=== PATIENT | female | born 1970 | race Caucasian/White ===

== ENCOUNTER 2024-03-01 10:13 | Emergency (ER) | payer BC, SELFPAY ==
[2024-03-01 10:21] VITALS: BP 138/101; PULSE 81; RESP 18; TEMP 36.3; O2SAT 96; BMI 31.7
--- NOTE | 2024-03-01 10:51 | CRLHL7_ITS ---
For Patients: As a result of the Century Cures Act, medical imaging exams and procedure reports are released immediately into your electronic medical record. You may view this report before your referring provider. If you have questions, please contact your health care provider. Indication: Fall, injury. Technique: Pelvis and left hip 3 views. Comparison: None. Findings: Bones: Alignment is normal. No fractures or bone lesions. Joint spaces: Mild bilateral hip joint arthrosis. Soft tissues: Unremarkable. Impression: No findings to explain pain. Dictated by Poli Bryant MD @ 03/01/2024 11:13:39 AM (Electronically Signed)
--- NOTE | 2024-03-01 11:28 | ED.FALL ---
HPI - Fall General Chief Complaint: Fall/Minor Trauma Stated Complaint: Fall at home, LT hip leg pain, nausea Time Seen by Provider: 03/01/24 10:48 History of Present Illness HPI Narrative: This 53-year-old female comes in with an injury to her left hip region. She states that she got tripped up by her dog and fell onto the her left hip. She was able to get up and ambulate some afterwards. She does not report any other injury. Related Data Home Medications ?Medication ?Instructions ?Recorded ?Confirmed olanzapine-fluoxetine 12 mg-25 mg 1 cap PO QPM 03/01/24 03/01/24 capsule ropinirole 1 mg tablet 1 mg PO QPM 03/01/24 03/01/24 trazodone 100 mg tablet 200 mg PO QPM PRN 03/01/24 03/01/24 Previous Rx's ?Medication ?Instructions ?Recorded hydrocodone 5 mg-acetaminophen 325 1 tab PO Q4-6H PRN pain #10 tabs 03/01/24 mg tablet ketorolac 10 mg tablet 10 mg PO Q8H 5 days #15 tabs 03/01/24 Allergies Allergy/AdvReac Type Severity Reaction Status Date / Time No Known Drug Allergies Allergy Verified 03/01/24 10:20 Review of Systems Status of ROS: Reports: 10 or more systems reviewed and unremarkable except as noted in History and below Narrative: Constitutional: No fevers, no weight gain or loss. Eyes: No discharge. No vision changes. HENT: No congestion, no sore throat, no ear pain. Cardiovascular: No chest pain, no palpitations. Respiratory: No shortness of breath, no wheezes, no cough. Gastrointestinal: No abdominal pain, no vomiting, no diarrhea. Genitourinary: No dysuria, no hematuria. Musculoskeletal: Left hip pain. Skin: No rashes, no pruritis. Neurological: No dizziness, weakness, sensory change, speech change. Endo/Heme/Allergies: No bruising or bleeding. No polydipsia. Pysch: no suicidality, no anxiety, no insomnia. All other systems reviewed and are negative. Exam Narrative: Exam Narrative: Constitutional: Well-developed, well-nourished, no acute distress. HEENT: Normocephalic, atraumatic. Neck: Normal range of motion. Nontender. Supple. Heart: Regular. No murmurs. Normal rate. Intact distal pulses. Lungs: Clear to auscultation. No chest discomfort. No wheezes, rhonchi, or rales. Abdomen: Normal bowel sounds. Nontender. No rebound tenderness. Genitalia: Deferred. Back: No midline tenderness. Normal range of motion. Extremities: Diffuse tenderness in the left hip region. She is able to move her leg and bear some weight. Skin: Intact. No rash. Warm. No erythema or pallor. Neurologic: No altered sensation. No weakness. Alert and oriented. Psychiatric: No suicidality. No anxiety or depression. No insomnia. Nursing notes and vitals signs are reviewed. Const: Vital Signs, click to edit/add: Vital Signs - 24 hr 03/01/24 10:21 Temperature 97.3 F L Pulse Rate [Pulse Oximeter] 81 Respiratory Rate 18 Blood Pressure [Ri ght Upper Arm] 138/101 H Pulse Oximetry 96 Oxygen Delivery Me thod Room Air Course Vital Signs Vital signs: Initial Vital Signs Temperature 97.3 F L 03/01/24 10:21 Temperature Source Temporal Artery Scan 03/01/24 10:21 Pulse Rate 81 03/01/24 10:21 Pulse Rhythm Regular 03/01/24 10:21 Respiratory Rate 18 03/01/24 10:21 Blood Pressure 138/101 H 03/01/24 10:21 Blood Pressure Mean 113 H 03/01/24 10:21 Pulse Oximetry 96 03/01/24 10:21 Oxygen Delivery Method Room Air 03/01/24 10:21 Vital Signs Temperature 97.3 F L 03/01/24 10:21 Pulse Rate 81 03/01/24 10:21 Respiratory Rate 18 03/01/24 10:21 Blood Pressure 138/101 H 03/01/24 10:21 Pulse Oximetry 96 03/01/24 10:21 Oxygen Delivery Method Room Air 03/01/24 10:21 Temperature 97.3 F L 03/01/24 10:21 Pulse Rate 81 03/01/24 10:21 Respiratory Rate 18 03/01/24 10:21 Blood Pressure 138/101 H 03/01/24 10:21 Pulse Oximetry 96 03/01/24 10:21 Oxygen Delivery Method Room Air 03/01/24 10:21 MDM - Fall MDM Narrative Medical decision making narrative: This patient comes in with an injury to her left hip. X-ray images according to radiology report and by my review show no sign of fracture or dislocation. The patient is able to ambulate somewhat and I did offer crutches which she declined. She is okay to be discharged home and encouraged increase activity as tolerated. She did received prescriptions for both Toradol and a few tablets of [place]. Discharge Plan Discharge Clinical Impression: Contusion of hip, left Additional Instructions: Take medication as needed and indicated. Increase activity as tolerated. Follow up with MD or return if worsening. Prescriptions: New hydrocodone-acetaminophen 5-325 mg tablet 1 tab PO Q4-6H PRN (Reason: pain) Qty: 10 0RF ketorolac 10 mg tablet 10 mg PO Q8H 5 Days Qty: 15 0RF No Action ropinirole 1 mg tablet 1 mg PO QPM trazodone 100 mg tablet 200 mg PO QPM PRN olanzapine-fluoxetine 12-25 mg capsule 1 cap PO QPM Follow Up/Referrals: Fatemeh Forde MD [Primary Care Provider] -
== END 2024-03-01 11:43 | disposition home or self-care (01) ==
PROVIDERS: Emergency Provider Emergency Medicine Emergency Medical Services; PCP Family Medicine
DX: S70.02XA Contusion of left hip, initial encounter (principal); W01.0XXA Fall on same level from slipping, tripping and stumbling without subsequent striking against object, initial encounter
CPT/HCPCS: 73502; 99283; 99284